=== PATIENT | female | born 1975 | race Caucasian/White ===

== ENCOUNTER → 2018-02-04 09:46 | Outpatient (CLI) | payer MEDICAID, SELFPAY ==
--- NOTE | 2018-02-04 09:59 | RAD_ITS ---
STUDY: X-RAY - CERVICAL SPINE REASON FOR EXAM: Female, 42 years old. Pain. TECHNIQUE: 5 view(s) of the cervical spine were obtained. COMPARISON: None FINDINGS: Normal anterior atlantoaxial articulation. Normal odontoid process. Normal cervical lordosis. Normal vertebral bodies. There is mild spondylosis of the C5-6 level.. Normal disc space heights. Normal visualized intervertebral neuroforamina. The soft tissue structures are unremarkable. RAD/Cerv Spine 4 or 5 Views IMPRESSION: Very mild degenerative changes. Electronically Signed: Abram Sumner MD at 3:00 EST , Service support ,
== END ==
PROVIDERS: Family Provider Family Medicine; PCP Family Medicine; Visit Provider Nurse Practitioner Family
DX: M54.2 Cervicalgia (principal)
CPT/HCPCS: 72050

== ENCOUNTER → 2019-03-01 10:04 | Outpatient (CLI) | payer MEDICAID, SELFPAY ==
[2014-06-06 13:09] VITALS: BMI 26.4
--- NOTE | 2019-03-01 10:10 | RAD_ITS ---
STUDY: X-RAY - LEFT KNEE REASON FOR EXAM: Female, 43 years old. Knee pain. TECHNIQUE: 4 view(s) of the knee. COMPARISON: None. FINDINGS: Normal visualized distal femur. Normal visualized proximal tibia and fibula. Normal proximal tibiofibular articulation. There is mild degenerative arthrosis of the medial femorotibial compartment. Normal lateral femorotibial compartment. Normal patellofemoral articulation. The soft tissue structures are unremarkable. RAD/Knee 4 or More Views IMPRESSION: Mild degenerative changes. Electronically Signed: Marie Parra MD at 19:44 EDT Tel , Service support ,
[2019-03-01 12:11] LABS: Color, Urine Yellow (Yellow); Glucose, Dipstick Normal (Normal); Ketone-Dipstick 5 mg/dl (Negative); Leukocyte Esterase-Dipstick 25 /ul (Negative); Nitrite-Dipstick Negative (Negative); Occult Blood-Urine Negative /ul (Negative); Protein-Dipstick 15 mg/dl (Negative); Urine Clarity Sl. Cloudy (Clear); Urine Urobilinogen 1 mg/dl (Normal)
[2019-03-01 12:12] LABS: Urine Bilirubin Dipstick 1 mg/dL (Negative)
[2019-03-01 12:19] LABS: Erythrocyte Sedimentation Rate 4 mm/hr (0-20)
[2019-03-01 12:33] LABS: Vitamin D,25 Hydroxy 24.5 ng/mL (29.95-100.01)
[2019-03-01 12:34] LABS: ALB/GLOB Ratio 1.1 RATIO (0.9-2.4); AST(SGOT) 909 U/L (15-37); Alanine Aminotransfer ALT/SGPT 660 U/L (13-56); Albumin, Serum 3.9 g/dL (3.2-5.0); Alkaline Phosphatase 345 U/L (45-117); Anion Gap 7 (5-15); BUN 11 mg/dL (7-18); BUN/Creat Ratio 15.1 RATIO (10-20); CRP 7.32 mg/L (0.0-3.0); Calcium,Total 8.9 mg/dL (8.5-10.1); Chloride 109 mmol/L (98-107); Creatinine, Serum 0.73 mg/dL (0.55-1.02); EST Glomerular Filtration Rate 94 mL/min (>60); Est Glom Filt Rate - Afr Amer 113 mL/min (>60); Globulin 3.6 g/dL (2.2-4.2); Glucose 116 mg/dL (74-106); Protein, Total 7.5 g/dL (6.4-8.2); Rheumatoid Factor < 10.0 IU/mL (<15); Sodium Level 141 mmol/L (136-145); Thyroid Stim Hormone (TSH) 1.01 uIU/mL (0.358-3.74)
[2019-03-03 14:13] LABS: Anti-Nuclear Antibody Test Negative (.)
[2019-03-03 14:31] LABS: CCP IgG Antibodies 2 units (0-19)
== END ==
PROVIDERS: Family Provider Family Medicine; PCP Family Medicine; Referring Provider Family Medicine; Visit Provider Family Medicine
DX: M25.562 Pain in left knee (principal); M06.4 Inflammatory polyarthropathy; R60.9 Edema, unspecified; F41.1 Generalized anxiety disorder
CPT/HCPCS: 36415; 73564; 80053; 81002; 82306; 84443; 85652; 86038; 86140; 86200; 86431

== ENCOUNTER → 2019-03-25 | Outpatient (CLI) | payer MEDICAID, SELFPAY ==
[2019-03-25 17:53] LABS: Absolute Lymphocyte Count 2.25 X10^3/ul (0.83-4.51); Absolute Neutrophil Count 3.2 X10^3/uL (2.0-7.7); Basophil# 0.03 X10^3/uL; Basophil% 0.5 % (0-1); Eosinophil# 0.23 X10^3/uL; Eosinophils% 3.6 % (0-5); Hematocrit 43.1 % (37-47); Hemoglobin 14.5 g/dl (12.0-15.0); Lymphocyte # 2.25 X10^3/ul (4.0); Lymphocyte % 35.4 % (19-41); Mean Corp Hgb Conc 33.6 g/gl (32-36); Mean Corpuscular Hgb 31.9 pg (27.0-32.0); Mean Corpuscular Volume 94.9 fL (81-99); Mean Platelet Vol. 11.7 fl (6.2-12.0); Monocyte# 0.65 X10^3/uL; Monocyte% 10.2 % (0-10); Neutrophil # 3.19 X10^3/uL (2.7-7.7); Neutrophil % 50.1 % (47-70); Platelet Count 237 K/mm3 (150-450); RBC Distribution Width CV 16.8 % (11.6-14.6); RBC Distribution Width SD 56.8 fl (35.1-43.9); Red Blood Count 4.54 M/mm3 (4.2-5.4); White Blood Count 6.4 K/mm3 (4.4-11.0)
[2019-03-25 18:03] LABS: ALB/GLOB Ratio 0.9 RATIO (0.9-2.4); AST(SGOT) 189 U/L (15-37); Alanine Aminotransfer ALT/SGPT 142 U/L (13-56); Albumin, Serum 3.5 g/dL (3.2-5.0); Alkaline Phosphatase 340 U/L (45-117); Anion Gap 7 (5-15); BUN 9 mg/dL (7-18); BUN/Creat Ratio 12.7 RATIO (10-20); Calcium,Total 8.7 mg/dL (8.5-10.1); Chloride 105 mmol/L (98-107); Creatinine, Serum 0.71 mg/dL (0.55-1.02); EST Glomerular Filtration Rate 97 mL/min (>60); Est Glom Filt Rate - Afr Amer 117 mL/min (>60); Globulin 3.7 g/dL (2.2-4.2); Glucose 91 mg/dL (74-106); Lipase 202 U/L (73-393); POSITIVE COUNT NO; POSITIVE DIFFERENTIAL NO; POSITIVE MORPHOLOGY NO; Potassium 3.5 mmol/L (3.5-5.1); Protein, Total 7.2 g/dL (6.4-8.2); Sodium Level 139 mmol/L (136-145)
[2019-03-28 20:07] LABS: Hepatitis A AB, Total Negative (Negative); Hepatitis A IgM Antibody Negative (Negative); Hepatitis B Core AB IgM Positive (Negative); Hepatitis B Core Ab Total Positive (Negative); Hepatitis C Ab 0.1 s/co ratio (0.0-0.9)
[2019-03-30 14:56] LABS: CMV Acute Antibody IgM < 30.0 AU/mL (0.0-29.9); EBV Acute VCA IgM 39.2 U/mL (0.0-35.9); EBV Early Antigen IgG <9.0 U/mL (0.0-8.9); EBV Nuclear Antigen IgG > 600.0 U/mL (0.0-17.9); EBV-VCA IgG > 600.0 U/mL (0.0-17.9); HEPATITIS B SURFACE AG Positive (Negative); Hep B Surface Antibodies Non Reactive (.)
== END | disposition home or self-care (01) ==
LOC: LAB.FUTURE 15:01
PROVIDERS: Family Provider Family Medicine; PCP Family Medicine; Visit Provider Family Medicine
DX: R74.8 Abnormal levels of other serum enzymes (principal); B17.9 Acute viral hepatitis, unspecified
CPT/HCPCS: 36415; 80053; 83690; 85025; 86644; 86645; 86663; 86664; 86665; 86704; 86705; 86706; 86708; 86709; 86803; 87340

== ENCOUNTER 2022-05-11 09:04 | Emergency (ER) | payer MEDICAID, SELFPAY ==
[2022-05-11 09:07] VITALS: BP 130/87; PULSE 101; RESP 17; TEMP 36.6; O2SAT 97; BMI 24.8
--- NOTE | 2022-05-11 09:30 | EDS_ITS ---
HPI <CHUNG Obando - Last Filed: 05/11/22 09:36> History of Present Illness Chief Complaint: Dental Narrative Narrative: 46-year-old female with history of restless leg syndrome, chronic dental issues, presents the emergency department with left upper dental pain. Patient states that she broke one of her 6 months ago, however due to to COVID- 19, patient was unable to see a dentist. Patient has a follow-up appointment tomorrow with the [facility]. Patient denies any fevers or chills. Patient states that the swelling started yesterday and she is here for evaluation. Patient does smoke cigarettes, denies any other drug use PFSH <CHUNG Obando - Last Filed: 05/11/22 09:36> PFSH Medical History (Updated 05/11/22 @ 09:34 by CHUNG Obando) Restless leg syndrome Trigger finger Home Medications naproxen 500 mg PO BID #20 tab 05/11/22 [Rx Last Taken Unknown] penicillin V potassium 500 mg PO 4X/DAY #40 tab 05/11/22 [Rx Last Taken Unknown] ropinirole 0.5 mg PO QHS 05/11/22 [History Last Taken Unknown] Allergy/AdvReac Type Severity Reaction Status Date / Time bee venom protein (honey bee) Allergy Anaphylaxis Verified 05/11/22 09:05 latex Allergy Swelling Verified 05/11/22 09:05 naproxen [From Naprosyn] Allergy Vomiting Verified 05/11/22 09:04 Surgical History (Updated 05/11/22 @ 09:13 by Alley Shannon) H/O hand surgery H/O: hysterectomy Social History Smoking Status: Current every day smoker tobacco type: cigarettes ROS <CHUNG Obando - Last Filed: 05/11/22 09:36> ROS ED ROS Narrative Constitutional: Negative for fever, chills, weight loss, weakness Eyes: Negative for vision loss, vision change, double vision ENT: Negative for any sore throat, ear pain, congestion. Positive for left upper dental pain. Multiple broken teeth. Cardiovascular: Negative for any chest pain, tightness, palpitations Respiratory: Negative for any cough, sputum production, hemoptysis, dyspnea, dyspnea on exertion, orthopnea Gastrointestinal: Negative for any abdominal pain, nausea, vomiting, diarrhea, constipation, blood in stool, blood in vomit : Negative for any urinary frequency, dysuria, retention, blood in urine Muscle skeletal: Negative for any muscle joint pain, stiffness, myalgias, arthralgias, neck pain, back pain Neurological: Negative for any headache, syncope, numbness or tingling, dizziness Skin: Negative for any rashes, lumps, itching, abrasions, lacerations Psychiatric: Negative for any depression, anxiety, stress, suicidal ideation, homicidal ideation Hematologic: Negative for any easy bruising, excessive bruising, easy bleeding Allergies: Negative for any eczema, hives, rash EXAM <CHUNG Obando - Last Filed: 05/11/22 09:36> Physical Exam Narrative Exam Narrative: Vital signs reviewed. HEET: Head normocephalic atraumatic, TMs clear bilaterally. Posterior pharynx is clear, moist mucous membranes. Nares clear bilaterally. Patient has poor dentition throughout oral exam. There are multiple broken teeth, teeth are different stages of decay. Patient has multiple dental caries. Denies any abs cess formation, fluctuation, deep tissue infection. Neck: Supple with no lymphadenopathy or tenderness. No signs of meningismus, negative jolt sign. Cardiac: Regular rate and rhythm no murmurs gallops or rubs, equal peripheral pulses bilaterally. Respiratory: Lungs clear to auscultation bilaterally. No chest tenderness. Abdomen: Soft, nontender, nondistended. No abdominal bruit or pulsatile masses. No hepatosplenomegaly Extremities: No peripheral edema, no signs of gross trauma or deformity. Active full range of motion of all extremities. Neuro: Cranial nerves II through XII intact, no focal neurological deficits. Skin: Clean dry and intact with no rash, purpura, petechiae, vesicles or pustules. Backs/flank: No CVA tenderness, no midline spinal tenderness, no deformity. Psych: Normal mood and affect. No SI, HI or acute psychosis. Const Vital Signs: 05/11/22 09:07 Temperature 97.9 F Temperature Source Temporal Pulse Rate 101 H Respiratory Rate 17 Blood Pressure 130/87 H Blood Pressure Mean 101 Pulse Ox 97 Oxygen Delivery Method Room Air Positive well nourished and well developed General Appearance ED: well developed <Dr. Hunter Oliva MD - Last Filed: 05/11/22 09:51> Physical Exam Const Vital Signs: 05/11/22 09:07 Temperature 97.9 F Temperature Source Temporal Pulse Rate 101 H Respiratory Rate 17 Blood Pressure 130/87 H Blood Pressure Mean 101 Pulse Ox 97 Oxygen Delivery Method Room Air [facility] <CHUNG Obando - Last Filed: 05/11/22 09:36> [facility] Narrative Medical decision making narrative: Patient appears well, patient appears nontoxic, vital signs are stable. Patient presents the emergency department dental pain for the last 48 hours. Patient does have poor dentition, patient is multiple areas of dental caries. Patient does have a reversible pulpitis which is the tooth that is causing her the most problems. Patient will receive naproxen, penicillin VK, she will receive a dental referral list. Patient instructed to stop smoking. Patient instructed to return for any worsening pain, fever, chills, abscess formation. At this time, there is no abscess formation, deep tissue infection. However it is vital that the patient see a dentist. She is stable for discharge. 1. Irreversible pulpitis 2. Multiple dental caries <Dr. Hunter Oliva MD - Last Filed: 05/11/22 09:51> [facility] Narrative Medical decision making narrative: Patient presents with dental pain. She does not have a dentist. She denies history of medic fever, heart murmur or mitral prolapse. She denies history of SBE. She is not immune suppressed. She denies IV drug use. She denies facial swelling or redness. She does report sensitivity to cold liquids. Patient has poor dentition. Essentially all of the teeth that are remaining are eroded to the gumline. Tooth #11 is the culprit today. There is some gingival swelling. There is no fluctuance that is amenable to I&D. There is no trismus. There is noted to facial cellulitis. Heart is regular without murmur, gallop or rub. Discharge Plan Triage Chief Complaint: Dental ED Midlevel Provider: Richard Yeboah ED Provider: Hunter Oliva Dx/Rx/DC Orders Clinical Impression: Irreversible pulpitis, Dental caries Instructions: Understanding Tooth Decay Prescriptions: New penicillin V potassium 500 mg tablet 500 mg PO 4X/DAY Qty: 40 RF: 0 naproxen 500 mg tablet,delayed release (DR/EC) 500 mg PO BID Qty: 20 RF: 0 No Action ropinirole 0.5 mg tablet 0.5 mg PO QHS RF: 0 Primary Care Provider: Breezy Hogue Referrals: Breezy Hogue MD [Primary Care Provider] - Activity Restrictions/Additional Instructions: Please do your best to stop smoking, use dental referral list. Print Language: Salvadorean Disposition Disposition: Home, Self Care Discharge Date/Time: 05/11/22 09:51
[2022-05-11] MEDS: Naproxen 500 MG Tablet PO (09:48)
[2022-05-11] MEDS: Penicillin Vk 250 MG Tablet 500 MG PO (09:48)
== END 2022-05-11 09:51 | disposition home or self-care (01) ==
PROVIDERS: Emergency Provider Emergency Medicine; PCP Family Medicine; Visit Provider Emergency Medicine
DX: K04.02 Irreversible pulpitis (principal); K02.9 Dental caries, unspecified; F17.210 Nicotine dependence, cigarettes, uncomplicated; G25.81 Restless legs syndrome
CPT/HCPCS: 99283

== ENCOUNTER → 2022-06-18 | Outpatient (CLI) | payer MEDICAID, SELFPAY ==
--- NOTE | 2022-06-18 13:25 | RAD_ITS ---
EXAM: XR LUMBOSACRAL SPINE, 2 OR 3 VIEWS CLINICAL INDICATION: LOWER BACK PAIN TECHNIQUE: Frontal and lateral views of the lumbar spine and sacrum. This report was created using [employer] technology. COMPARISON: None. FINDINGS: VERTEBRAE: Mild scoliosis convex to the left measuring 7 degrees centered at L2-L3. Preserved vertebral body height. No fracture. No spondylolisthesis. No significant facet arthropathy. DISC SPACES: No acute findings. Disc spaces are maintained. GASTROINTESTINAL TRACT: Unremarkable as visualized. Included bowel gas pattern is non-obstructive. RAD/Lumbar Spine 2 or 3 Views IMPRESSION: 1. Mild scoliosis convex to the left measuring 7 degrees centered at L2-L3. 2. No acute abnormality. Electronically Signed: Bucky Rea MD at 0:49 EDT ,
== END | disposition home or self-care (01) ==
LOC: RAD 13:23
PROVIDERS: PCP Family Medicine; Referring Provider Anesthesiology Pain Medicine; Visit Provider Anesthesiology Pain Medicine
DX: M54.16 Radiculopathy, lumbar region (principal)
CPT/HCPCS: 72100

== ENCOUNTER 2022-08-26 09:42 | Emergency (ER) | payer MEDICAID, SELFPAY ==
[2022-08-26 09:43] VITALS: BP 137/91; PULSE 91; RESP 18; TEMP 36.8; O2SAT 100; BMI 23.6
[2022-08-26] MEDS: Penicillin Vk 250 MG Tablet 500 MG PO (09:59)
[2022-08-26] MEDS: Naproxen 250 MG Tablet 500 MG PO (09:59)
--- NOTE | 2022-08-26 10:02 | EDS_ITS ---
HPI History of Present Illness Chief Complaint: Dental Informant: patient Narrative Narrative: Increasing right lower facial swelling since last evening. Poor dentition. No fevers. Cold sensitivities. Tobacco history. History of similar has a dentist as planned total extraction of all her teeth this coming September. Seen in April for similar swelling however left upper improved with antibiotics. She was discharged with penicillin and naproxen back in April for which she tolerated both well. Prior similar symptoms: Yes PFSH PFSH Medical History Restless leg syndrome Trigger finger Home Medications penicillin V potassium 500 mg tablet 500 mg PO 4X/DAY #40 tabs 05/11/22 [Rx Last Taken Unknown] ropinirole 0.5 mg tablet 0.5 mg PO QHS 05/11/22 [History Last Taken Unknown] naproxen 500 mg tablet 500 mg PO BID PRN #20 tabs 08/26/22 [Rx Last Taken Unknow n] penicillin V potassium 500 mg tablet 500 mg PO 4X/DAY #40 tabs 08/26/22 [Rx Last Taken Unknown] Allergy/AdvReac Type Severity Reaction Status Date / Time bee venom protein (honey bee) Allergy Anaphylaxis Verified 08/26/22 09:45 latex Allergy Swelling Verified 08/26/22 09:45 Surgical History H/O hand surgery H/O: hysterectomy Social History Smoking Status: Current every day smoker tobacco type: cigarettes ROS ROS ED Constitutional Constitutional ED: Denies chills, fever(s) or sweats Eyes Eyes: Denies change in vision ENT ENT ED: Reports other Details: Dental pain right lower facial swelling ; Denies dysphagia or sore throat Cardiovascular Cardiovascular: Denies chest pain, leg edema, palpitations or racing heartbeat Respiratory/Chest Respiratory/Chest: Denies cough, dyspnea or dyspnea on exertion Gastrointestinal Gastrointestinal: Denies abdominal pain, diarrhea, nausea or vomiting Genitourinary Genitourinary ED: Denies dysuria, hematuria or urinary frequency Musculoskeletal Musculoskeletal: Denies back pain, extremity pain or neck pain Integumentary Denies rash or wounds Neurologic Neurologic: Denies headache(s), paresthesias or weakness EXAM Physical Exam Const Vital Signs: 08/26/22 09:43 Temperature 98.2 F Temperature Source Temporal Pulse Rate 91 Respiratory Rate 18 Blood Pressure 137/91 H Blood Pressure Mean 106 Pulse Ox 100 Oxygen Delivery Method Room Air Positive well nourished and well developed General Appearance ED: well developed and NAD HEENT Reports moist mucous membranes HEENT Narrative: Diffuse poor dentition, gingival swelling, lines 29 and 30. There is swelling of the lip and lower chin region on right side. There is no focal gum swelling there is no sublingual edema. No trismus. Airway patent. normocephalic and atraumatic Eyes PERRL, EOMs intact bilaterally and conjunctivae normal General Eye ED: Yes normal appearance of both eyes Neck no lymphadenopathy and supple General: Negative for tenderness Chest Wall Chest: Negative for tenderness Resp normal respiratory effort and normal air movement Effort and Inspection: symmetric chest movement; Negative for respiratory distress Cardio regular rate, regular rhythm and no murmurs Peripheral Pulses: pulses 2+ throughout GI normal to inspection, nondistended, normoactive bowel sounds and non-tender Palpation: Negative for guarding or rebound tenderness present Back/Spine no CVA tenderness and no thoracic nor lumbar tenderness Extremity normal to inspection General Extremety ED: Negative for edema or tenderness General Extremity: Negative for edema Neuro oriented x3 and no sensory deficits noted Sensorium / Orientation: awake and alert Skin no rashes or lesions noted and no wounds MDM MDM MDM Narrative Medical decision making narrative: Patient vital stable afebrile gingival swelling with diffuse poor dentition with right lower facial swelling. There is no fluctuance area that is amenable for incision and drainage. She is started on penicillin and naproxen in the ED pres criptions were sent to her pharmacy. Discussed calling her dentist for an earlier follow-up evaluation and definitive treatment as an outpatient. Return precautions. All questions were answered. Discharge Plan Triage Chief Complaint: Dental ED Provider: Domenico Araiza Dx/Rx/DC Orders Clinical Impression: Dental caries, Gingivitis Instructions: Understanding Gingivitis, ED Dental Cavity Prescriptions: New naproxen 500 mg tablet 500 mg PO BID PRN Qty: 20 0RF penicillin V potassium 500 mg tablet 500 mg PO 4X/DAY Qty: 40 0RF Discontinued naproxen 500 mg tablet,delayed release (DR/EC) 500 mg PO BID Qty: 20 0RF No Action ropinirole 0.5 mg tablet 0.5 mg PO QHS Label Comments: TAKE 1 TABLET BY MOUTH 1-2 HOURS BEFORE BED FOR RESTLESS LEGS penicillin V potassium 500 mg tablet 500 mg PO 4X/DAY Qty: 40 0RF Primary Care Provider: Breezy Hogue Referrals: Breezy Hogue MD [Primary Care Provider] - Activity Restrictions/Additional Instructions: Call your dentist for earlier follow-up and outpatient management. Disposition Disposition: Home, Self Care Discharge Date/Time: 08/26/22 10:16
== END 2022-08-26 10:16 | disposition home or self-care (01) ==
LOC: ED 10:08
PROVIDERS: Emergency Provider Emergency Medicine; PCP Family Medicine; Visit Provider Emergency Medicine
DX: K05.10 Chronic gingivitis, plaque induced (principal); K02.9 Dental caries, unspecified; F17.210 Nicotine dependence, cigarettes, uncomplicated; G25.81 Restless legs syndrome
CPT/HCPCS: 99283

== ENCOUNTER 2023-04-18 12:33 | Emergency (ER) | payer MEDICAID, SELFPAY ==
[2023-04-18 12:33] VITALS: BP 126/90; PULSE 96; RESP 18; TEMP 36.1; O2SAT 98; BMI 25.8
--- NOTE | 2023-04-18 12:40 | ED.VIS.DENTA ---
HPI <CHUNG Obando - Last Filed: 04/18/23 12:48> History of Present Illness Chief Complaint: Dental Narrative Narrative: Patient is a 47-year-old female who does not take any prescription medications daily presents to the emergency department with swelling to the left lower jaw. Patient does have poor dentition, she has had for several years. She does have an appointment in 2 weeks in [place] to get all of her teeth removed and to get dentures. She denies any drainage or difficulty breathing. She denies any fever or chills. She noticed the swelling this morning and is concerned. PFSH <CHUNG Obando - Last Filed: 04/18/23 12:48> PFSH Medical History Restless leg syndrome Trigger finger Home Medications penicillin V potassium 500 mg tablet 500 mg PO 4X/DAY #40 tabs 05/11/22 [Rx Last Taken Unknown] ropinirole 0.5 mg tablet 0.5 mg PO QHS 05/11/22 [History Last Taken Unknown] naproxen 500 mg tablet 500 mg PO BID PRN #20 tabs 08/26/22 [Rx Last Taken Unknown] penicillin V potassium 500 mg tablet 500 mg PO 4X/DAY #40 tabs 08/26/22 [Rx Last Taken Unknown] naproxen 500 mg tablet (Naprosyn) 500 mg PO BID PRN pain #20 tabs 04/18/23 [Rx Last Taken Unknown] penicillin V potassium 500 mg tablet 500 mg PO 4X/DAY 10 days #40 tabs 04/18/23 [Rx Last Taken Unknown] Allergy/AdvReac Type Severity Reaction Status Date / Time bee venom protein (honey bee) Allergy Anaphylaxis Verified 04/18/23 12:35 latex Allergy Swelling Verified 04/18/23 12:35 Surgical History H/O hand surgery H/O: hysterectomy Social History Smoking Status: Current every day smoker tobacco type: cigarettes ROS <CHUNG Obando - Last Filed: 04/18/23 12:48> ROS ED ROS Narrative Constitutional: Negative for fever, chills, weight loss, weakness Eyes: Negative for vision loss, vision change, double vision ENT: Negative for any sore throat, ear pain, congestion. Positive for left lower jaw pain Cardiovascular: Negative for any chest pain, tightness, palpitations Respiratory: Negative for any cough, sputum production, hemoptysis, dyspnea, dyspnea on exertion, orthopnea Gastrointestinal: Negative for any abdominal pain, nausea, vomiting, diarrhea, constipation, blood in stool, blood in vomit : Negative for any urinary frequency, dysuria, retention, blood in urine Muscle skeletal: Negative for any muscle joint pain, stiffness, myalgias, arthralgias, neck pain, back pain Neurological: Negative for any headache, syncope, numbness or tingling, dizziness Skin: Negative for any rashes, lumps, itching, abrasions, lacerations Psychiatric: Negative for any depression, anxiety, stress, suicidal ideation, homicidal ideation Hematologic: Negative for any easy bruising, excessive bruising, easy bleeding Allergies: Negative for any eczema, hives, rash EXAM <CHUNG Obando - Last Filed: 04/18/23 12:48> Physical Exam Narrative Exam Narrative: Vital signs reviewed. HEET: Head normocephalic atraumatic, TMs clear bilaterally. Posterior pharynx is clear, moist mucous membranes. Nares clear bilaterally. Patient has swelling to the left lower jaw, patient has poor dentition throughout oral exam. There is no trismus. On palpation to the inner mucosa, there is no fluctuance no drainable abscess. Patient does have edema to the left lower jaw. Neck: Supple with no lymphadenopathy or tenderness. No signs of meningismus, negative jolt sign. Cardiac: Regular rate and rhythm no murmurs gallops or rubs, equal peripheral pulses bilaterally. Respiratory: Lungs clear to auscultation bilaterally. No chest tenderness. Abdomen: Soft, nontender, nondistended. No abdominal bruit or pulsatile masses. No hepatosplenomegaly Extremities: No peripheral edema, no signs of gross trauma or deformity. Active full range of motion of all extremities. Neuro: Cranial nerves II through XII intact, no focal neurological deficits. Skin: Clean dry and intact with no rash, purpura, petechiae, vesicles or pustules. Backs/flank: No CVA tenderness, no midline spinal tenderness, no deformity. Psych: Normal mood and affect. No SI, HI or acute psychosis. Const Vital Signs: 04/18/23 12:33 Temperature 96.9 F L Temperature Source Temporal Pulse Rate 96 Respiratory Rate 18 Blood Pressure 126/90 H Blood Pressure Mean 102 Pulse Ox 98 Oxygen Delivery Method Room Air <Dr. Fabrizio Farmer DO - Last Filed: 04/18/23 15:51> Physical Exam Const Vital Signs: 04/18/23 12:33 Temperature 96.9 F L Temperature Source Temporal Pulse Rate 96 Respiratory Rate 18 Blood Pressure 126/90 H Blood Pressure Mean 102 Pulse Ox 98 Oxygen Delivery Method Room Air [facility] <CHUNG Obando - Last Filed: 04/18/23 12:48> [facility] Treatment and Re-Evaluation Narrative: Patient appears well, patient appears nontoxic, vital signs are stable. Patient presents to the emergency department with concern for left lower jaw swelling, dental caries. Patient does have an established dentist and will have all these teeth removed in 2 weeks. She is concerned for the infection of left lower jaw. Patient's physical examination is consistent with dental caries, she has poor dentition throughout her oral exam. There is no evidence of any deep tissue infection, no red flag signs such as Ludwigs angina. Patient be placed on penicillin, as well as naproxen, she will substitute Tylenol as well. She is happy with the plan of care, all questions answered. <Dr. Fabrizio Farmer, - Last Filed: 04/18/23 15:51> [facility] Narrative Medical decision making narrative: Patient appears well, patient appears nontoxic, vital signs are stable. Patient presents to the emergency department with concern for left lower jaw swelling, dental caries. Patient does have an established dentist and will have all these teeth removed in 2 weeks. She is concerned for the infection of left lower jaw. Patient's physical examination is consistent with dental caries, she has poor dentition throughout her oral exam. There is no evidence of any deep tissue infection, no red flag signs such as Ludwigs angina. Patient be placed on penicillin, as well as naproxen, she will substitute Tylenol as well. She is happy with the plan of care, all questions answered This patient was seen with a PA/REIMBURSEMENT CONSULTANT Individually assessed they patient including history and physical. I have reviewed everything on the chart that is available and agree with the documentation provided by the PA/REIMBURSEMENT CONSULTANT including discussion about the assessment, treatment plan, discussion, and return precautions. Patient with dental caries and facial swelling. There is anything that needs to be drained she has procedures planned for 2 weeks from now to remove all her teeth. No systemic signs or symptoms. No red flags. Patient started on penicillin and anti-inflammatories from the ER. Return precautions discussed. Treatment and Re-Evaluation Narrative: . Discharge Plan Triage Chief Complaint: Dental ED Midlevel Provider: Richard Yeboah ED Provider: Fabrizio Farmer Dx/Rx/DC Orders Clinical Impression: Dental caries, Toothache Instructions: ED Dental Pain, ED Dental Cavity Prescriptions: New naproxen [Naprosyn] 500 mg tablet 500 mg PO BID PRN (Reason: pain) Qty: 20 0RF penicillin V potassium 500 mg tablet 500 mg PO 4X/DAY 10 Days Qty: 40 0RF No Action ropinirole 0.5 mg tablet 0.5 mg PO QHS Label Comments: TAKE 1 TABLET BY MOUTH 1-2 HOURS BEFORE BED FOR RESTLESS LEGS penicillin V potassium 500 mg tablet 500 mg PO 4X/DAY Qty: 40 0RF naproxen 500 mg tablet 500 mg PO BID PRN Qty: 20 0RF penicillin V potassium 500 mg tablet 500 mg PO 4X/DAY Qty: 40 0RF Primary Care Provider: Care Physician,No Primary Activity Restrictions/Additional Instructions: Take antibiotics until finished. Please ensure that you keep your appointment with your dentist in 2 weeks Disposition Disposition: Home, Self Care Discharge Date/Time: 04/18/23 13:09
== END 2023-04-18 13:09 | disposition home or self-care (01) ==
LOC: ED 12:54
PROVIDERS: Emergency Provider Student in an Organized Health Care Education/Training Program; Visit Provider Student in an Organized Health Care Education/Training Program
DX: K02.9 Dental caries, unspecified (principal); K08.89 Other specified disorders of teeth and supporting structures; F17.210 Nicotine dependence, cigarettes, uncomplicated; Z90.710 Acquired absence of both cervix and uterus
CPT/HCPCS: 99282